=== PATIENT | female | born 1985 | race Caucasian/White ===

== ENCOUNTER 2019-07-08 17:55 | Emergency (ER) | payer OTHER ==
[~2019-07-08] VITALS: Ht 167.6 cm; Wt 118.2 kg
[~2019-07-08 17:55] MED LIST: PERCOCET 325 MG1 TA2 PO
[2019-07-08 18:43] VITALS: BP 122/76
[2019-07-08] MEDS ORDERED: DOXYCYCLINE 10100 MG PO (22:01)
[2019-07-08] MEDS ORDERED: NORCO 325 MG-51 TAB PO (22:01)
[2019-07-08 22:31] VITALS: PULSE 125; TEMP 98.3
== END 2019-07-08 22:31 | disposition home or self-care (01) ==
LOC: COL.ER 17:55
DX: J18.9 Pneumonia, unspecified organism (principal); J10.1 Influenza due to other identified influenza virus with other respiratory manifestations